=== PATIENT | male | born 1995 | race Caucasian/White ===

== ENCOUNTER 2019-10-25 13:11 | Emergency (ER) | payer OTHER, SELFPAY ==
[2019-10-26 13:47] LABS: SARS-CoV-2 MS2 Positive; SARS-CoV-2 N Gene Negative; SARS-CoV-2 S Gene Negative; SARS-CoV-2 by NAA Not Detected (NotDetected); SARS-CoV-2 orf1ab Negative
== END 2019-10-25 13:49 | disposition home or self-care (01) ==
LOC: ERS 13:11
DX: Z20.828 Contact with and (suspected) exposure to other viral communicable diseases (principal); F17.210 Nicotine dependence, cigarettes, uncomplicated
CPT/HCPCS: 87635; 99283; U0003

== ENCOUNTER 2023-05-20 17:08 | Emergency (ER) | payer OTHER ==
[2023-05-20] MEDS ORDERED: Dexamethasone 10 MG/ML VIAL ONE (17:47)
[2023-05-20] MEDS ORDERED: Ibuprofen 800 MG TAB ONE ×3 (17:47→17:52)
[2023-05-20 19:41] LABS: Influenza A by NAA Not Detected (NotDetected); Influenza B by NAA Not Detected (NotDetected); SARS-CoV-2 NAA Rapid Test Not Detected (NotDetected)
== END 2023-05-20 20:02 | disposition home or self-care (01) ==
LOC: ERS 17:08
DX: J20.9 Acute bronchitis, unspecified (principal); R06.2 Wheezing; Z55.6 Problems related to health literacy; Z75.3 Unavailability and inaccessibility of health-care facilities; Z87.891 Personal history of nicotine dependence
CPT/HCPCS: 71045; 93005; 94640; J1100